=== PATIENT | female | born 1950 | race Two or more races ===

== ENCOUNTER 2018-02-23 17:05 | Emergency (ER) | payer MEDICAID ==
[~2018-02-23] VITALS: Ht 160 cm; Wt 88.0 kg
[2018-02-23 17:24] VITALS: BP 130/59
== END 2018-02-23 17:37 | disposition home or self-care (01) ==
LOC: ER 17:07
DX: Z76.0 Encounter for issue of repeat prescription (principal); I10 Essential (primary) hypertension; E11.9 Type 2 diabetes mellitus without complications; I48.91 Unspecified atrial fibrillation; Z86.73 Personal history of transient ischemic attack (TIA), and cerebral infarction without residual deficits; Z98.890 Other specified postprocedural states
CPT/HCPCS: A4606